=== PATIENT | male | born 1970 | race Caucasian/White ===

== ENCOUNTER 2023-01-02 10:30 | Emergency (ER) | payer SELFPAY ==
[2023-01-02 11:08] LABS: BASOPHILS ABSOLUTE AUTO 0.05 K/uL (0.00-0.20); BASOPHILS PERCENT AUTO 0.5 % (0.0-2.0); EOSINOPHILS ABSOLUTE AUTO 0.21 K/uL (0.00-0.50); HEMATOCRIT 41.8 % (39.0-49.0); HEMOGLOBIN 13.9 g/dL (13.1-16.8); LYMPHOCYTES ABSOLUTE AUTO 2.18 K/uL (0.50-3.50); LYMPHOCYTES PERCENT AUTO 20.7 % (10.0-50.0); MEAN CORPUSCULAR HEMOGLOBIN 29.3 pg (28.2-33.3); MEAN CORPUSCULAR HGB CONC 33.3 g/dL (31.7-36.0); MEAN CORPUSCULAR VOLUME 88.2 fL (84.0-98.0); MONOCYTES ABSOLUTE AUTO 0.79 K/uL (0.00-1.00); MONOCYTES PERCENT AUTO 7.5 % (2.0-14.0); NEUTROPHILS ABSOLUTE AUTO 7.32 K/uL (1.40-7.00); NEUTROPHILS PERCENT AUTO 69.3 % (45.0-80.0); PLATELET COUNT,PLT 195 K/uL (150-350); RED BLOOD CELL COUNT 4.74 M/uL (4.33-5.41); RED CELL DISTRIBUTION WIDTH 13.9 % (11.2-14.1); WHITE BLOOD CELL COUNT,WBC 10.6 K/uL (4.0-10.2)
[2023-01-02 11:28] LABS: ALBUMIN 3.6 g/dL (3.4-5.0); BILIRUBIN TOTAL 0.5 mg/dL (0.2-1.0); CALCIUM 9.1 mg/dL (8.5-10.1); CREATININE 1.19 mg/dL (0.51-1.17); EST CRCL DRUG DOSING (CG) 70.96 mL/min; POTASSIUM,K 4.3 mmol/L (3.5-5.1); PROTEIN TOTAL,TP 7.1 g/dL (6.4-8.2)
[2023-01-02 11:29] LABS: INR 0.9 (0.9-1.1); PROTHROMBIN TIME 9.4 SEC (9.0-11.1)
[2023-01-02] MEDS: Iopamidol 612 MG/ML 100 ML Bottle IVPUSH ONE (12:42)
== END 2023-01-02 15:00 | disposition home or self-care (01) ==
LOC: LL.ED 10:30
DX: K57.20 Diverticulitis of large intestine with perforation and abscess without bleeding (principal); Z79.82 Long term (current) use of aspirin; Z79.899 Other long term (current) drug therapy
CPT/HCPCS: 36415; 74177; 80053; 85025; 85610; 86140; 99284; Q9967

== ENCOUNTER 2023-06-18 13:57 | Emergency (ER) | payer OTHER ==
[2023-06-18 14:27] LABS: BASOPHILS ABSOLUTE AUTO 0.04 K/uL (0.00-0.20); BASOPHILS PERCENT AUTO 0.7 % (0.0-2.0); EOSINOPHILS ABSOLUTE AUTO 0.23 K/uL (0.00-0.50); EOSINOPHILS PERCENT AUTO 3.8 % (0.0-5.0); HEMATOCRIT 41.3 % (39.0-49.0); HEMOGLOBIN 13.9 g/dL (13.1-16.8); LYMPHOCYTES ABSOLUTE AUTO 2.02 K/uL (0.50-3.50); MEAN CORPUSCULAR HEMOGLOBIN 29.4 pg (28.2-33.3); MEAN CORPUSCULAR HGB CONC 33.7 g/dL (31.7-36.0); MEAN CORPUSCULAR VOLUME 87.3 fL (84.0-98.0); MONOCYTES ABSOLUTE AUTO 0.46 K/uL (0.00-1.00); MONOCYTES PERCENT AUTO 7.5 % (2.0-14.0); NEUTROPHILS ABSOLUTE AUTO 3.38 K/uL (1.40-7.00); PLATELET COUNT,PLT 202 K/uL (150-350); RED BLOOD CELL COUNT 4.73 M/uL (4.33-5.41); RED CELL DISTRIBUTION WIDTH 14.1 % (11.2-14.1); WHITE BLOOD CELL COUNT,WBC 6.1 K/uL (4.0-10.2)
[2023-06-18 14:50] LABS: ALANINE AMINOTRANSFERASE,ALT 73 U/L (12-78); ALBUMIN 3.7 g/dL (3.4-5.0); ALKALINE PHOSPHATASE 118 IU/L (46-116); ANION GAP 9.9 meq/L (7-15); ASPARTATE AMNIOTRANSFERASE,AST 31 U/L (15-37); BILIRUBIN TOTAL 0.4 mg/dL (0.2-1.0); BLOOD UREA NITROGEN,BUN 13 mg/dL (7-18); CALCIUM 8.2 mg/dL (8.5-10.1); CARBON DIOXIDE,CO2 25.1 mmol/L (21.0-32.0); CHLORIDE,CL 105 mmol/L (98-107); CREATININE 1.04 mg/dL (0.51-1.17); GLUCOSE RANDOM 117 mg/dL (70-99); POTASSIUM,K 3.8 mmol/L (3.5-5.1); SODIUM,NA 140 mmol/L (136-145)
[2023-06-18 14:53] LABS: ESTIMATED GFR 85 mL/min (>=60)
== END 2023-06-18 15:10 | disposition home or self-care (01) ==
LOC: LL.ED 13:57
DX: G44.209 Tension-type headache, unspecified, not intractable (principal); R03.0 Elevated blood-pressure reading, without diagnosis of hypertension; Z79.899 Other long term (current) drug therapy
CPT/HCPCS: 36415; 80053; 84484; 85025; 99284

== ENCOUNTER 2023-09-06 20:03 | Emergency (ER) | payer OTHER ==
[2023-09-06] MEDS: fentaNYL 50 MCG/ML SDV IVPUSH ONE ×2 (20:10→20:45)
[2023-09-06] MEDS ORDERED: fentaNYL 50 MCG/ML SDV ONE ×2 (20:16→20:36)
[2023-09-06 20:26] LABS: APPEARANCE,URINE CLEAR; BILIRUBIN,URINE NEGATIVE (NEGATIVE); COLOR,URINE YELLOW; GLUCOSE,URINE NEGATIVE (NEGATIVE); KETONES,URINE TRACE mg/dL (NEGATIVE); LEUKOCYTE ESTERASE,URINE NEGATIVE (NEGATIVE); NITRITE,URINE NEGATIVE (NEGATIVE); OCCULT BLOOD,URINE TRACE-INTACT (NEGATIVE); PH,URINE 5.5 (5.0-9.0); PROTEIN,URINE 30 mg/dL (NEGATIVE); UROBILINOGEN,URINE 0.2 E.U./dL (0.2-1.0)
[2023-09-06] MEDS ORDERED: Sodium Chloride 0.9% 10 ML Syringe FLUSH PRN (20:26)
[2023-09-06 20:31] LABS: BASOPHILS ABSOLUTE AUTO 0.03 K/uL (0.00-0.20); BASOPHILS PERCENT AUTO 0.4 % (0.0-2.0); EOSINOPHILS PERCENT AUTO 2.7 % (0.0-5.0); HEMATOCRIT 41.9 % (39.0-49.0); HEMOGLOBIN 14.5 g/dL (13.1-16.8); LYMPHOCYTES ABSOLUTE AUTO 2.34 K/uL (0.50-3.50); LYMPHOCYTES PERCENT AUTO 31.3 % (10.0-50.0); MEAN CORPUSCULAR HEMOGLOBIN 29.5 pg (28.2-33.3); MEAN CORPUSCULAR HGB CONC 34.6 g/dL (31.7-36.0); MEAN CORPUSCULAR VOLUME 85.3 fL (84.0-98.0); NEUTROPHILS ABSOLUTE AUTO 4.31 K/uL (1.40-7.00); NEUTROPHILS PERCENT AUTO 57.6 % (45.0-80.0); PLATELET COUNT,PLT 186 K/uL (150-350); RED BLOOD CELL COUNT 4.91 M/uL (4.33-5.41); RED CELL DISTRIBUTION WIDTH 13.6 % (11.2-14.1); WHITE BLOOD CELL COUNT,WBC 7.5 K/uL (4.0-10.2)
[2023-09-06] MEDS ORDERED: Ketorolac 15 MG/ML SDV ONE (20:36)
[2023-09-06] MEDS ORDERED: Ondansetron 4 MG/2 ML SDV ONE (20:41)
[2023-09-06] MEDS: Ketorolac 15 MG/ML SDV IVPUSH ONE (20:45)
[2023-09-06] MEDS: Ondansetron 4 MG/2 ML SDV IVPUSH ONE (20:45)
[2023-09-06 20:50] LABS: INR 0.9 (0.9-1.1); PROTHROMBIN TIME 9.3 SEC (9.0-11.1)
[2023-09-06] MEDS ORDERED: Naloxone 0.4 MG/ML SDV IVPUSH PRN (20:59)
[2023-09-06 21:00] LABS: ALANINE AMINOTRANSFERASE,ALT 42 U/L (12-78); ALBUMIN 3.9 g/dL (3.4-5.0); ALKALINE PHOSPHATASE 115 IU/L (46-116); ANION GAP 8.9 meq/L (7-15); ASPARTATE AMNIOTRANSFERASE,AST 23 U/L (15-37); BILIRUBIN TOTAL 0.4 mg/dL (0.2-1.0); BLOOD UREA NITROGEN,BUN 18 mg/dL (7-18); CALCIUM 9.1 mg/dL (8.5-10.1); CARBON DIOXIDE,CO2 28.1 mmol/L (21.0-32.0); CHLORIDE,CL 105 mmol/L (98-107); CREATININE 1.51 mg/dL (0.51-1.17); ESTIMATED GFR 55 mL/min (>=60); GLUCOSE RANDOM 131 mg/dL (70-99); POTASSIUM,K 3.6 mmol/L (3.5-5.1); PROTEIN TOTAL,TP 7.4 g/dL (6.4-8.2); SODIUM,NA 142 mmol/L (136-145)
[2023-09-06 21:06] LABS: BACTERIA,URINE FEW /HPF (NONE TO FEW); EPITHELIAL CELLS,URINE FEW /LPF; MUCUS,URINE FEW /LPF (NEGATIVE); RBC,URINE 0-5 /HPF; WBC,URINE 0-5 /HPF
== END 2023-09-06 20:48 ==
LOC: LL.ED 20:03
DX: N44.00 Torsion of testis, unspecified (principal)
CPT/HCPCS: 36415; 80053; 81001; 85025; 85610; 85730; 96374; 96375; 96376; 99284-25; J1885; J2405; J3010

== ENCOUNTER 2023-12-29 15:55 | Emergency (ER) | payer OTHER ==
[2023-12-29] MEDS: Bacitracin Oint 1 GM U/D Packet TOP ONE (17:06)
[2023-12-29] MEDS: Lidocaine 1% 5 ML VIAL INJECT ONE ×2 (17:06→17:10)
== END 2023-12-29 18:55 | disposition home or self-care (01) ==
LOC: LL.ED 15:55 → SUPCPDRO 15:55 → LL.ED 18:55
DX: S61.216A Laceration without foreign body of right little finger without damage to nail, initial encounter (principal); S61.411A Laceration without foreign body of right hand, initial encounter; W31.2XXA Contact with powered woodworking and forming machines, initial encounter
CPT/HCPCS: 12002; 99282; 99283; J3490

== ENCOUNTER 2024-03-08 15:26 | Observation (INO) | payer OTHER ==
[2024-03-08] MEDS: Aspirin 81 MG Tab.Chew PO ONE (15:46)
[2024-03-08] MEDS: Lactated Ringers 1,000 ML IV SCH (15:47)
[2024-03-08 15:49] LABS: BASOPHILS ABSOLUTE AUTO 0.08 K/uL (0.00-0.20); BASOPHILS PERCENT AUTO 0.9 % (0.0-2.0); EOSINOPHILS ABSOLUTE AUTO 0.27 K/uL (0.00-0.50); EOSINOPHILS PERCENT AUTO 3.1 % (0.0-5.0); HEMATOCRIT 45.3 % (39.0-49.0); HEMOGLOBIN 15.4 g/dL (13.1-16.8); IMMATURE GRAN ABSOLUTE AUTO 0.03 10^3/uL (0.00-0.04); IMMATURE GRAN PERCENT AUTO 0.3 % (0.0-0.4); LYMPHOCYTES ABSOLUTE AUTO 2.91 K/uL (0.50-3.50); LYMPHOCYTES PERCENT AUTO 33.6 % (10.0-50.0); MEAN CORPUSCULAR HEMOGLOBIN 29.5 pg (28.2-33.3); MEAN CORPUSCULAR VOLUME 86.8 fL (84.0-98.0); MONOCYTES ABSOLUTE AUTO 0.71 K/uL (0.00-1.00); MONOCYTES PERCENT AUTO 8.2 % (2.0-14.0); NEUTROPHILS ABSOLUTE AUTO 4.66 K/uL (1.40-7.00); NEUTROPHILS PERCENT AUTO 53.9 % (45.0-80.0); PLATELET COUNT,PLT 225 K/uL (150-350); RED BLOOD CELL COUNT 5.22 M/uL (4.33-5.41); RED CELL DISTRIBUTION WIDTH 13.4 % (11.2-14.1); WHITE BLOOD CELL COUNT,WBC 8.7 K/uL (4.0-10.2)
[2024-03-08] MEDS: Diltiazem 25 MG/5 ML SDV IVPUSH ONE (15:57)
[2024-03-08 15:58] LABS: INR 0.9 (0.9-1.1); PROTHROMBIN TIME 9.3 SEC (9.0-11.1)
[2024-03-08 16:02] LABS: BILIRUBIN TOTAL 0.5 mg/dL (0.2-1.0); CALCIUM 9.1 mg/dL (8.5-10.1); CREATININE 1.44 mg/dL (0.51-1.17); EST CRCL DRUG DOSING (CG) 57.96 mL/min; MAGNESIUM 2.1 mg/dL (1.8-2.4); POTASSIUM,K 3.9 mmol/L (3.5-5.1); PROTEIN TOTAL,TP 7.7 g/dL (6.4-8.2)
[2024-03-08] MEDS: Sodium Chloride 0.9% 10 ML Syringe FLUSH PRN (16:03)
[2024-03-08] MEDS: Diltiazem 125 MG in Sodium Chloride 0.9% 100 ML IV SCH (16:52)
[2024-03-08] MEDS ORDERED: Naloxone 0.4 MG/ML SDV IVPUSH PRN (18:58)
[2024-03-08] MEDS: fentaNYL 50 MCG/ML SDV IVPUSH ONE ×2 (19:09→19:23)
[2024-03-08] MEDS: Midazolam 1 MG/ML 2 ML SDV IVPUSH ONE ×2 (19:10→19:20)
[2024-03-08] MEDS: Apixaban 5 MG Tab PO ONE ×2 (21:11)
== END 2024-03-08 21:45 | disposition home or self-care (01) ==
LOC: LL.ED 15:26 → LL.MS 17:40
PROVIDERS: ADMIT Physician Assistant; ATTEND Physician Assistant
DX: I48.91 Unspecified atrial fibrillation (principal); R07.9 Chest pain, unspecified; I10 Essential (primary) hypertension; Z79.01 Long term (current) use of anticoagulants; Z79.899 Other long term (current) drug therapy
CPT/HCPCS: 36415; 71045; 80053; 83735; 84484; 85025; 85610; 92960; 93005; 96361; 96365; 96366; 96376; 99285; A9270; J2250; J3010; J3490; J7120; 93010; 99284

== ENCOUNTER 2024-04-16 06:59 | Emergency (ER) | payer OTHER ==
[2024-04-16 07:04] VITALS: PULSE 64
[2024-04-16 07:25] VITALS: BP 163/94
== END 2024-04-16 08:20 | disposition home or self-care (01) ==
LOC: LL.ED 06:59
DX: S43.401A Unspecified sprain of right shoulder joint, initial encounter (principal); I10 Essential (primary) hypertension; I48.91 Unspecified atrial fibrillation; Z88.2 Allergy status to sulfonamides; Z79.899 Other long term (current) drug therapy; Z79.82 Long term (current) use of aspirin; X50.0XXA Overexertion from strenuous movement or load, initial encounter; Y93.89 Activity, other specified
CPT/HCPCS: 73030-RT; 99283

== ENCOUNTER 2024-05-07 10:52 | Observation (INO) | payer OTHER ==
[2024-05-07] MEDS: Aspirin 81 MG Tab.Chew PO ONE (11:07)
[2024-05-07 11:09] LABS: BASOPHILS ABSOLUTE AUTO 0.06 K/uL (0.00-0.20); BASOPHILS PERCENT AUTO 0.9 % (0.0-2.0); EOSINOPHILS ABSOLUTE AUTO 0.25 K/uL (0.00-0.50); EOSINOPHILS PERCENT AUTO 3.7 % (0.0-5.0); HEMATOCRIT 43.1 % (39.0-49.0); HEMOGLOBIN 14.6 g/dL (13.1-16.8); IMMATURE GRAN ABSOLUTE AUTO 0.02 10^3/uL (0.00-0.04); IMMATURE GRAN PERCENT AUTO 0.3 % (0.0-0.4); LYMPHOCYTES ABSOLUTE AUTO 2.39 K/uL (0.50-3.50); LYMPHOCYTES PERCENT AUTO 35.7 % (10.0-50.0); MEAN CORPUSCULAR HEMOGLOBIN 28.9 pg (28.2-33.3); MEAN CORPUSCULAR HGB CONC 33.9 g/dL (31.7-36.0); MEAN CORPUSCULAR VOLUME 85.3 fL (84.0-98.0); MONOCYTES ABSOLUTE AUTO 0.46 K/uL (0.00-1.00); MONOCYTES PERCENT AUTO 6.9 % (2.0-14.0); NEUTROPHILS ABSOLUTE AUTO 3.52 K/uL (1.40-7.00); NEUTROPHILS PERCENT AUTO 52.5 % (45.0-80.0); PLATELET COUNT,PLT 192 K/uL (150-350); RED BLOOD CELL COUNT 5.05 M/uL (4.33-5.41); RED CELL DISTRIBUTION WIDTH 12.8 % (11.2-14.1); WHITE BLOOD CELL COUNT,WBC 6.7 K/uL (4.0-10.2)
[2024-05-07] MEDS: Sodium Chloride 0.9% 10 ML Syringe FLUSH PRN (11:09)
[2024-05-07] MEDS: Diltiazem 25 MG/5 ML SDV IVPUSH ONE (11:09)
[2024-05-07 11:32] LABS: ALANINE AMINOTRANSFERASE,ALT 44 U/L (12-78); ALBUMIN 3.6 g/dL (3.4-5.0); ALKALINE PHOSPHATASE 129 IU/L (46-116); ASPARTATE AMNIOTRANSFERASE,AST 27 U/L (15-37); BILIRUBIN TOTAL 0.4 mg/dL (0.2-1.0); BLOOD UREA NITROGEN,BUN 13 mg/dL (7-18); CALCIUM 8.6 mg/dL (8.5-10.1); CARBON DIOXIDE,CO2 25.6 mmol/L (21.0-32.0); CHLORIDE,CL 108 mmol/L (98-107); CREATININE 1.06 mg/dL (0.51-1.17); GLUCOSE RANDOM 143 mg/dL (70-99); MAGNESIUM 1.7 mg/dL (1.8-2.4); POTASSIUM,K 4.4 mmol/L (3.5-5.1); PROTEIN TOTAL,TP 6.9 g/dL (6.4-8.2); SODIUM,NA 143 mmol/L (136-145)
[2024-05-07 11:34] LABS: ANION GAP 13.8 meq/L (7-15); ESTIMATED GFR 83 mL/min (>=60); INR 0.9 (0.9-1.1); PROTHROMBIN TIME 9.4 SEC (9.0-11.1); PTT,PARTIAL THROMBOPLSTIN TIME 25.1 SEC (23.8-34.4)
[2024-05-07] MEDS: Diltiazem 125 MG in Sodium Chloride 0.9% 100 ML IV SCH (12:37)
[2024-05-07] MEDS: Sodium Chloride 0.9% 250 ML IV SCH (13:18)
[2024-05-07] MEDS: Acetaminophen 500 MG Tab PO PRN (14:41)
[2024-05-07] MEDS: Metoprolol Succinate 50 MG Tab.ER PO ONE (15:29)
[2024-05-08 07:56] LABS: BASOPHILS ABSOLUTE AUTO 0.05 K/uL (0.00-0.20); BASOPHILS PERCENT AUTO 0.7 % (0.0-2.0); EOSINOPHILS ABSOLUTE AUTO 0.26 K/uL (0.00-0.50); EOSINOPHILS PERCENT AUTO 3.9 % (0.0-5.0); HEMATOCRIT 44.6 % (39.0-49.0); IMMATURE GRAN ABSOLUTE AUTO 0.02 10^3/uL (0.00-0.04); IMMATURE GRAN PERCENT AUTO 0.3 % (0.0-0.4); LYMPHOCYTES ABSOLUTE AUTO 2.91 K/uL (0.50-3.50); LYMPHOCYTES PERCENT AUTO 43.6 % (10.0-50.0); MEAN CORPUSCULAR HEMOGLOBIN 29.1 pg (28.2-33.3); MEAN CORPUSCULAR HGB CONC 33.6 g/dL (31.7-36.0); MEAN CORPUSCULAR VOLUME 86.6 fL (84.0-98.0); MONOCYTES ABSOLUTE AUTO 0.55 K/uL (0.00-1.00); MONOCYTES PERCENT AUTO 8.2 % (2.0-14.0); NEUTROPHILS ABSOLUTE AUTO 2.88 K/uL (1.40-7.00); NEUTROPHILS PERCENT AUTO 43.3 % (45.0-80.0); PLATELET COUNT,PLT 185 K/uL (150-350); RED BLOOD CELL COUNT 5.15 M/uL (4.33-5.41); WHITE BLOOD CELL COUNT,WBC 6.7 K/uL (4.0-10.2)
[2024-05-08] MEDS ORDERED: Metoprolol Succinate 50 MG Tab.ER PO SCH (08:00)
[2024-05-08] MEDS: Aspirin 81 MG Tab.EC PO SCH (08:14)
[2024-05-08] MEDS: Famotidine 20 MG Tab PO SCH (08:14)
[2024-05-08] MEDS: Metoprolol Succinate 50 MG Tab.ER PO SCH (08:14)
[2024-05-08] MEDS: Lisinopril 10 MG Tab PO SCH (08:14)
[2024-05-08] MEDS: Magnesium Oxide 400 MG Tab PO SCH (08:14)
[2024-05-08 08:41] LABS: ALBUMIN 3.2 g/dL (3.4-5.0); BILIRUBIN TOTAL 0.5 mg/dL (0.2-1.0); CALCIUM 8.9 mg/dL (8.5-10.1); CARBON DIOXIDE,CO2 26.5 mmol/L (21.0-32.0); CREATININE 1.2 mg/dL (0.51-1.17); EST CRCL DRUG DOSING (CG) 69.55 mL/min; MAGNESIUM 1.9 mg/dL (1.8-2.4); POTASSIUM,K 4.3 mmol/L (3.5-5.1); PROTEIN TOTAL,TP 6.4 g/dL (6.4-8.2)
[2024-05-08 08:54] LABS: ANION GAP 11.8 meq/L (7-15)
== END 2024-05-08 10:50 | disposition home or self-care (01) ==
LOC: SUPCPDRO 10:52 → LL.ED 10:52 → LL.MS 13:25
PROVIDERS: ADMIT Physician Assistant; ATTEND Physician Assistant
DX: I48.91 Unspecified atrial fibrillation (principal); I10 Essential (primary) hypertension; Z79.82 Long term (current) use of aspirin; Z79.899 Other long term (current) drug therapy
CPT/HCPCS: 36415; 71045; 80053; 83605; 83735; 84436; 84484; 85025; 85610; 85730; 93005; 96365; 96366; 96376; 99285; A9270; G0378; J3490; 93010; 99223; 99239

== ENCOUNTER 2024-05-17 14:26 | Emergency (ER) | payer OTHER ==
[2024-05-17 14:44] LABS: BASOPHILS ABSOLUTE AUTO 0.04 K/uL (0.00-0.20); BASOPHILS PERCENT AUTO 0.6 % (0.0-2.0); EOSINOPHILS ABSOLUTE AUTO 0.11 K/uL (0.00-0.50); EOSINOPHILS PERCENT AUTO 1.6 % (0.0-5.0); HEMATOCRIT 44.8 % (39.0-49.0); HEMOGLOBIN 15.3 g/dL (13.1-16.8); IMMATURE GRAN ABSOLUTE AUTO 0.02 10^3/uL (0.00-0.04); IMMATURE GRAN PERCENT AUTO 0.3 % (0.0-0.4); LYMPHOCYTES ABSOLUTE AUTO 1.87 K/uL (0.50-3.50); LYMPHOCYTES PERCENT AUTO 26.4 % (10.0-50.0); MEAN CORPUSCULAR HEMOGLOBIN 29.1 pg (28.2-33.3); MEAN CORPUSCULAR HGB CONC 34.2 g/dL (31.7-36.0); MEAN CORPUSCULAR VOLUME 85.3 fL (84.0-98.0); MONOCYTES ABSOLUTE AUTO 0.39 K/uL (0.00-1.00); MONOCYTES PERCENT AUTO 5.5 % (2.0-14.0); NEUTROPHILS ABSOLUTE AUTO 4.64 K/uL (1.40-7.00); NEUTROPHILS PERCENT AUTO 65.6 % (45.0-80.0); PLATELET COUNT,PLT 201 K/uL (150-350); RED BLOOD CELL COUNT 5.25 M/uL (4.33-5.41); WHITE BLOOD CELL COUNT,WBC 7.1 K/uL (4.0-10.2)
[2024-05-17] MEDS: Prochlorperazine 10 MG/2 ML SDV IV ONE (14:45)
[2024-05-17] MEDS: diphenhydrAMINE 50 MG/ML SDV IVPUSH ONE (14:48)
[2024-05-17] MEDS: Ketorolac 15 MG/ML SDV IVPUSH ONE (14:50)
[2024-05-17] MEDS: Sodium Chloride 0.9% 10 ML Syringe FLUSH PRN (14:50)
[2024-05-17 15:05] LABS: PROTHROMBIN TIME 9.7 SEC (9.0-11.1)
[2024-05-17 15:21] LABS: BILIRUBIN TOTAL 0.7 mg/dL (0.2-1.0); CREATININE 1.06 mg/dL (0.51-1.17); EST CRCL DRUG DOSING (CG) 78.74 mL/min; MAGNESIUM 1.9 mg/dL (1.8-2.4); PROTEIN TOTAL,TP 7.9 g/dL (6.4-8.2)
== END 2024-05-17 16:19 | disposition home or self-care (01) ==
LOC: LL.ED 14:26
DX: G43.909 Migraine, unspecified, not intractable, without status migrainosus (principal); I10 Essential (primary) hypertension; I48.91 Unspecified atrial fibrillation; Z79.899 Other long term (current) drug therapy
CPT/HCPCS: 36415; 80053; 83735; 85025; 85610; 96374; 96375; 99284; 99284-25; J0780; J1200; J1885

== ENCOUNTER 2024-10-30 14:41 | Emergency (ER) | payer OTHER | END 2024-10-30 15:42 | disposition home or self-care (01) | LOC: LL.ED 14:41 | DX: H65.91 Unspecified nonsuppurative otitis media, right ear (principal); K05.10 Chronic gingivitis, plaque induced; I10 Essential (primary) hypertension; I48.91 Unspecified atrial fibrillation; Z79.899 Other long term (current) drug therapy | CPT/HCPCS: 99282 ==